=== PATIENT | female | born 1995 | race Caucasian/White ===

== ENCOUNTER 2017-06-21 22:54 | Outpatient (CLI) | payer OTHER ==
[2017-06-21 23:09] VITALS: BP 112/56
[2017-06-22 00:31] LABS: ADD MIUA? NO; BILIRUBIN NEGATIVE; BLOOD NEGATIVE; COLOR STRAW ((YELLOW)); GLUCOSE (STRIP) NEGATIVE; KETONES NEGATIVE; LEUKOCYTES NEGATIVE; NITRITE NEGATIVE; PROTEIN (STRIP) NEGATIVE; SPECIFIC GRAVITY 1.004 (1.000-1.030); UROBILINOGEN 0.2 MG/DL (0.2-1.0)
[2017-06-22 00:58] LABS: AMPHETAMINE NEGATIVE (500 ng/mL); BARBITURATES NEGATIVE (200 ng/mL); BENZODIAZEPINES NEGATIVE (150 ng/mL); COCAINE NEGATIVE (150 ng/mL); INTERNAL CONTROLS VALID? YES; METHADONE NEGATIVE (200 ng/mL); METHAMPHETAMINE NEGATIVE (500 ng/mL); OPIATES (MORPHINE) NEGATIVE (100 ng/mL); OXYCODONE NEGATIVE (100 ng/mL); PHENCYCLIDINE NEGATIVE (25 ng/mL); PROPOXYPHENE NEGATIVE (300 ng/mL); THC CANNABINOIDS NEGATIVE (50 ng/mL); TRICYCLIC ANTIDEPRESSANTS NEGATIVE (300 ng/mL)
[2017-06-22 01:57] LABS: CANDIDA DNA PROBE NEGATIVE; GARDNERELLA DNA PROBE POSITIVE; INTERNAL CONTROL VALID? YES
[2017-06-22] MEDS ORDERED: FLAGYL500 MG PO (02:27)
[2017-06-22 12:17] LABS: POINT-OF-CARE METER ID UU13113692
== END 2017-06-22 02:55 | disposition home or self-care (01) ==
LOC: LDRP-OP 22:54 → 2WEST 22:55
PROVIDERS: Advanced Practice Midwife; Obstetrics & Gynecology
DX: O36.8120 Decreased fetal movements, second trimester, not applicable or unspecified (principal); O26.892 Other specified pregnancy related conditions, second trimester; M54.5 Low back pain; Z87.891 Personal history of nicotine dependence; Z79.82 Long term (current) use of aspirin; Z3A.27 27 weeks gestation of pregnancy
CPT/HCPCS: 59025; 81003; 82948; 87086; 87480; 87510; 87660; G0378

== ENCOUNTER 2017-07-11 20:12 | Emergency (ER) | payer OTHER ==
[~2017-07-11] VITALS: Ht 170.2 cm; Wt 81.6 kg
[~2017-07-11 20:12] MED LIST: FLAGYL500 MG PO
[2017-07-11 20:54] VITALS: BP 120/74
== END 2017-07-11 20:55 | disposition home or self-care (01) ==
LOC: EME 20:12 → RME 20:12
DX: O26.893 Other specified pregnancy related conditions, third trimester (principal); N64.4 Mastodynia; Z3A.30 30 weeks gestation of pregnancy; Z88.0 Allergy status to penicillin
CPT/HCPCS: 80053; 81003; 84702; 85027; 99281; 99283

== ENCOUNTER 2017-08-19 16:03 | Outpatient (CLI) | payer OTHER ==
[2017-08-19 16:22] VITALS: BP 123/66
== END 2017-08-19 17:05 | disposition home or self-care (01) ==
LOC: LDRP-OP 16:03 → 2WEST 16:06 → LDRP-OP 10-17 03:06
DX: O36.8130 Decreased fetal movements, third trimester, not applicable or unspecified (principal); Z3A.35 35 weeks gestation of pregnancy
CPT/HCPCS: 59025; G0378

== ENCOUNTER 2017-08-29 07:36 | Inpatient (IN) | payer OTHER ==
[2017-08-29] VITALS (21 sets, daily range): BP systolic 110–138; BP diastolic 57–84
[~2017-08-29] VITALS: Ht 162.6 cm; Wt 84.4 kg
[2017-08-29 11:47] LABS: BASOPHIL (%) 0.1 % (0-1); EOSINOPHIL (%) 0.6 % (0-5); HEMATOCRIT 32.2 % (36.0-46.0); HEMOGLOBIN 10.7 G/DL (11.9-15.5); IMMATURE GRANULOCYTE (%) 0.3 % (0.0-0.7); LYMPHOCYTE (%) 20.1 % (15-42); LYMPHOCYTE COUNT 1.5 K/uL (1.0-2.8); MCH 28.2 PG (29.0-34.0); MCHC 33.2 G/DL (30.0-36.0); MONOCYTE COUNT 0.5 K/uL (0-0.8); NEUTROPHIL (%) 71.9 % (45-76); NEUTROPHIL COUNT 5.2 K/uL (1.8-6.4); PLATELET COUNT 270 K/uL (156-360); RBC DIS.WIDTH-CV 13.6 % (11.8-14.6); RBC DIS.WIDTH-SD 41.7 % (39-53); RED BLOOD COUNT 3.79 M/uL (3.80-5.20); WHITE BLOOD COUNT 7.3 K/uL (4.1-10.2)
[2017-08-30] VITALS (11 sets, daily range): BP systolic 107–129; BP diastolic 51–90
[2017-08-30 05:31] LABS: BASE EXCESS -1.1 mEq/L (-3 to +3); BICARBONATE 26.6 mEq/L (22-26); CARBOXY HGB 0.4 % (0-5); COMMENTS - BLOOD GASES CORD GAS; PCO2 54 mm Hg (35-45); PO2 < 32 mm Hg (80-100)
[2017-08-30 05:34] LABS: BICARBONATE 22.7 mEq/L (22-26); CARBOXY HGB 3.9 % (0-5); COMMENTS - BLOOD GASES CORD GAS; METHEMOGLOBIN 0.5 % (0-1.5); PCO2 42 mm Hg (35-45); PO2 46 mm Hg (80-100); pH 7.34 (7.35-7.45)
[2017-08-31 03:19] VITALS: BP 110/55
[2017-08-31 05:55] LABS: BASOPHIL (%) 0.2 % (0-1); EOSINOPHIL (%) 0.2 % (0-5); HEMATOCRIT 26.8 % (36.0-46.0); HEMOGLOBIN 8.9 G/DL (11.9-15.5); IMMATURE GRANULOCYTE (%) 0.6 % (0.0-0.7); LYMPHOCYTE COUNT 2.7 K/uL (1.0-2.8); MCH 28.5 PG (29.0-34.0); MCHC 33.2 G/DL (30.0-36.0); MCV 85.9 FL (83-99); MONOCYTE (%) 7.4 % (3-12); MONOCYTE COUNT 1.1 K/uL (0-0.8); NEUTROPHIL (%) 72.6 % (45-76); NEUTROPHIL COUNT 10.4 K/uL (1.8-6.4); PLATELET COUNT 256 K/uL (156-360); RBC DIS.WIDTH-SD 42.8 % (39-53); RED BLOOD COUNT 3.12 M/uL (3.80-5.20); WHITE BLOOD COUNT 14.4 K/uL (4.1-10.2)
[2017-08-31 07:40] VITALS: BP 133/63
[2017-08-31 10:49] VITALS: BP 130/68
[2017-08-31 15:05] VITALS: BP 119/68
[2017-08-31 19:30] VITALS: BP 128/66
[2017-08-31 22:46] VITALS: BP 127/67
[2017-09-01 02:45] VITALS: BP 110/63
[2017-09-01 07:45] VITALS: BP 105/55
[2017-09-01] MEDS ORDERED: ENDOCET 5-3251 EACH PO (10:39)
[2017-09-01] MEDS ORDERED: PRENATAL TABLE1 EAC3 PO (10:39)
[2017-09-01] MEDS ORDERED: IBUPROFEN800 MG PO (10:39)
[2017-09-01] MEDS ORDERED: FERROUS SULFAT325 MG PO (10:39)
== END 2017-09-01 13:10 | disposition home or self-care (01) | DRG 765 ==
LOC: LDRP-OP 07:36 → 2WEST 07:37 → LDRP-OP 10-17 17:39
PROVIDERS: Advanced Practice Midwife; Obstetrics & Gynecology
PROC: 10D00Z1 Extraction of Products of Conception, Low, Open Approach (ICD-10-PCS; principal; 2017-08-30)
PROC: 10907ZC Drainage of Amniotic Fluid, Therapeutic from Products of Conception, Via Natural or Artificial Opening (ICD-10-PCS; principal; 2017-08-30)
PROC: 00HU33Z Insertion of Infusion Device into Spinal Canal, Percutaneous Approach (ICD-10-PCS; principal; 2017-08-30)
PROC: 3E0R3BZ Introduction of Anesthetic Agent into Spinal Canal, Percutaneous Approach (ICD-10-PCS; principal; 2017-08-30)
DX: O36.5930 Maternal care for other known or suspected poor fetal growth, third trimester, not applicable or unspecified (principal); D62 Acute posthemorrhagic anemia; O62.0 Primary inadequate contractions; O99.02 Anemia complicating childbirth; Z37.0 Single live birth; Z3A.37 37 weeks gestation of pregnancy; Z82.49 Family history of ischemic heart disease and other diseases of the circulatory system; Z87.891 Personal history of nicotine dependence
CPT/HCPCS: 36600; 82803; 85025; 88307; C1755; G0378; J0330; J0690; J1170; J1580; J2210; J2270; J2400; J2405; J3010; J7120